=== PATIENT | female | born 1950 | race Caucasian/White ===

== ENCOUNTER 2022-11-07 17:25 | Emergency (ER) | payer MEDICARE, OTHER, SELFPAY ==
[2022-11-07 17:26] VITALS: BP 196/115; PULSE 89; RESP 16; TEMP 36.7; O2SAT 100; BMI 26.5
--- NOTE | 2022-11-07 18:03 | EX.ED.VIS.EY ---
HPI History of Present Illness Chief Complaint: Eye Problem Informant: patient Narrative Narrative: Patient presents with some watering and now mild burning in the right eye. She states she was just driving and started having a lot of tearing and watering. It seems irritated. She got home. She states her eye was just kind of burning. She took out her contact. It helped a little bit but it still bothering her. She states the vision is blurry after her contact is out. However, her contacts are a -5-1/2 on the right and she states normally she cannot see at all without her contact. So her blurriness is actually chronic. This is not worse than normal. She has no known trauma but says she may have gotten some dust in it while driving. No history of glaucoma. She states she had an allergic reaction to something once that caused a problem like this but cannot think of what would have triggered this event. PFSH PFSH Allergy/AdvReac Type Severity Reaction Status Date / Time Sulfa (Sulfonamide Allergy Intermediate NEEDS Verified 11/07/22 17:26 Antibiotics) FOLLOW-UP Social History Smoking Status: Never smoker ROS ROS ED Constitutional Constitutional ED: Denies chills, fever(s) or subjective Eyes Eyes: Reports other Details: See history of present illness ENT ENT ED: Denies rhinorrhea Cardiovascular Cardiovascular: Denies chest pain Respiratory/Chest Respiratory/Chest: Denies cough Gastrointestinal Gastrointestinal: Denies nausea or vomiting Integumentary Denies Abrasions or rash Neurologic Neurologic: Denies headache(s), paresthesias or weakness Hematologic/Lymphatic Hematologic/Lymphatic: Denies easy bleeding, easy bruising or lymphadenopathy EXAM Physical Exam Narrative Exam Narrative: General: Patient awake alert sitting in a brightly lit room in no acute distress carries on normal conversation. HEENT: No sign of trauma. No rashes. Negative Bennett sign. She does have just a hint of swelling of her lower lid. There is obvious tearing. There is some mild injection. There appears to be a chronic small stye on the lower lid medially but patient states this is chronic and unchanged from normal. It does not look acutely infected to me. Slit-lamp exam will be reported separately. Neck is supple no lymphadenopathy Lungs are clear. Heart is regular. Abdomen is nontender. Neurologically she is awake alert appropriate. No facial weakness. She has normal gait balance and coordination. Const Vital Signs: 11/07/22 17:26 Temperature 98.0 F Temperature Source Temporal Pulse Rate 89 Respiratory Rate 16 Blood Pressure 196/115 H Blood Pressure Mean 142 Pulse Ox 100 Oxygen Delivery Method Room Air MDM MDM MDM Narrative Medical decision making narrative: We will do visual acuity. However, since the patient has -5-1/2 and -6-1/2 contact lenses I expect her visual acuity to be exceedingly poor without these in. Slit-lamp exam shows: Lamp exam was initially done without any dye. She has tearing. Minimal injection. Pupillary is normal and responsive. There is no photophobia. I see no foreign body. We then placed fluorescein in the eye. There is some mild uptake in a few spots around the cornea. It looks like a mild version of a superficial punctate keratitis. But its not clustered in one area. It certainly is not a corneal ulcer at all. I do not see any linear abrasion. I think this may have been irritation from her contact. It may have gotten dry or it may have gotten dust under there. With the break in the epithelium, the burning and tearing we will give a short course of antibiotics. If she has visual loss pain vomiting fevers or any other symptoms she needs to return. Discharge Plan Triage Chief Complaint: Eye Problem ED Provider: Sam Cespedes Dx/Rx/DC Orders Clinical Impression: Corneal irritation of right eye Instructions: ED Corneal Injury, Contact Lens Primary Care Provider: Edwin Craft,Out of Referrals: Dominick Neal MD [Med Staff - Active Staff] - 1-2 Days if not improving Edwin Craft,Out of [Primary Care Provider] - Disposition Disposition: Home, Self Care
[2022-11-07] MEDS: Fluorescein 1 MG STRIP 1 STRIP OPHTHALMIC (18:25)
[2022-11-07] MEDS: Tetracaine 0.5% Ophthalmic Bottle 1 DRP OPHTHALMIC (18:25)
[2022-11-07] MEDS: Erythromycin Base 1 OPTH.TUBE 1 APPLIC RIGHT EYE (19:03)
== END 2022-11-07 19:05 | disposition home or self-care (01) ==
PROVIDERS: Emergency Provider Emergency Medicine; Visit Provider Emergency Medicine
DX: H18.891 Other specified disorders of cornea, right eye (principal)
CPT/HCPCS: 99283

== ENCOUNTER 2024-07-05 05:40 | Day surgery (SDC) | payer MEDICARE, OTHER, SELFPAY ==
[2024-07-05] VITALS (8 sets, daily range): BP systolic 110–149; BP diastolic 63–77; PULSE 54–72; RESP 16–18; TEMP 36.1–36.3; O2SAT 98–100; BMI 27.6
[2024-07-05] MEDS: Lactated Ringers 1,000 ML 15 ML IV (06:38)
--- NOTE | 2024-07-05 06:48 | PCM.PRE.AN2 ---
ASA Classification* ASA Classification ASA Classification: 2 (HTN , cholestrol) Assessment & Plan Anesthesia* Anesthesia Assessment Anesthesia Assessment: Discussed sedation and/or anesthesia options, risks, benefits, and alternatives with patient/parents/legal guardian/POA. Questions invited. The patient/parents/legal guardian/POA seems to understand and agrees to proceed with anesthesia plan. Reviewed the physical assessment, medical history, allergy history and patient home medications list prior to surgery/procedure/anesthetic and documented any changes. Performed airway and anesthesia risk assessments. 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 When Was Last Pacemaker Check QUESTION #4 FULL TEXT: You/Your Family Experience fever (hyperthermia) with Anesthesia Last Oral Intake Last Oral intake: Last Oral Intake NPO since 03:00 07/05/24 06:28 Meds taken in AM with sips of water? Meds patient instructed to take am of surgery PONV PONV - systems software engineer: PONV - systems software engineer Female Yes 07/03/24 10:45 HX of Motion Sickness No 07/03/24 10:45 HX of N/V After Surgery No 07/03/24 10:45 Non-Smoker Yes 07/03/24 10:45 Duration of Surgery greater No 07/03/24 10:45 than 60 minutes Number of Risk Factors 2 07/03/24 10:45 PONV Score Moderate Risk 07/03/24 10:45 Height & Weight Height & Weight: Anesthesia: Height & Weight Height 5 ft 2 in 07/05/24 06:28 Weight: 68.492 kg 07/05/24 06:28 Body Mass Index (BMI) 27.6 07/05/24 06:28 Respiratory Assessment Respiratory Assessment - systems software engineer: Respiratory Tract Infection Hx - systems software engineer Hx Respiratory Tract Infection No 07/03/24 10:45 STOP Sleep Apnea STOP Sleep Apnea - systems software engineer: STOP Sleep Apnea - systems software engineer Hx Hypertension No 07/03/24 10:45 Hx Sleep Apnea No 07/03/24 10:45 CPAP BIPAP Do you snore loudly (louder No 07/03/24 10:45 than talking or can be heard Do you often feel tired/ No 07/03/24 10:45 fatigued/ sleepy during daytime? Has anyone observed you stop No 07/03/24 10:45 breathing during sleep? STOP Results Negative 07/03/24 10:45 QUESTION #5 FULL TEXT : Do you snore loudly (louder than talking or can be heard through closed doors)? 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 Specify any problems Hx of Preganancy in last 3 No 07/03/24 10:45 Months Nurse Filling Out Transfusion VCHRISTIN 07/03/24 10:45 & Questions: Date: 07/03/24 07/03/24 10:45 Time: 10:46 07/03/24 10:45 Patient unable to answer at this time (ie. confused, unrespo /Reproduction History /Reproductive History - systems software engineer: /Reproductive Hx- systems software engineer Hx Now Gestational Age (in weeks): EDC: Hx Hx Para Hx Section SAB Active Medications Active Medications: Current Medications Generic Name Dose Route Start Last Admin Trade Name Freq PRN Reason Stop Dose Admin Lactated Ringer's 1,000 mls @ 15 mls/hr 07/05/24 06:15 07/05/24 06:38 IV 15 mls/hr .Q48H BE Administration PFSH Medical History (Updated 07/03/24 @ 10:45 by Haylee Bradford) Wears contact lenses Wears glasses Post-menopausal Non-smoker Leg cramps History of echocardiogram Hypertension Home Medications ?Medication ?Instructions ?Recorded ?Last Taken ?Type atorvastatin 20 mg tablet 20 mg PO DAILY 07/03/24 07/04/24 History cholecalciferol (vitamin D3) 50 50 mcg PO DAILY 07/03/24 07/04/24 History mcg (2,000 unit) tablet (Vitamin D3) lisinopril 40 mg tablet 40 mg PO DAILY 07/03/24 07/04/24 History metoprolol succinate 50 mg 50 mg PO DAILY 07/03/24 07/05/24 03:00 History tablet,extended release 24 hr Allergy/AdvReac Type Severity Reaction Status Date / Time Sulfa (Sulfonamide Allergy Intermediate NEEDS Verified 07/05/24 06:25 Antibiotics) FOLLOW-UP Surgical History (Updated 07/03/24 @ 10:45 by Haylee Bradford) Hx of colonoscopy Hx of hysterectomy History of 2 sections Social History Smoking Status: Never smoker Review of Systems (Anesthesia) ROS Narrative System reviewed and no additional complaints, except as documented.
--- NOTE | 2024-07-05 07:15 | COLBX_PTH ---
PATIENT: MELINDA GONZALEZ LOC: EN U#:[id number] AGE/SX: 73/F ROOM: RE07/05/[address]: Dr. Neil Flores DO : 1950 BED: DIS: 07/05/2024 SPEC #: [id number] RECD: 07/05/24 09:29 STATUS: ANTONIO GAFFNEY #: [id number] ANISH: 07/05/24 07:[address]: Neil Flores DEPT: SURGICAL PATHOLOGY RECD BY: Cj Castanon Tissues: A - Cecum, NOS Procedures: Surgery Specimen Level IV HEADER OPERATION: Colonoscopy biopsy PRE-OP DIAGNOSIS: Encounter for screening colonoscopy TISSUE SUBMITTED: A- Cecum polyp biopsy MICROSCOPIC DIAGNOSIS A. Colon, cecum, polyp, biopsy: Tubular adenoma. MICROSCOPIC DESCRIPTION Slides are reviewed. GROSS DESCRIPTION A. Received in formalin in a container labeled with the patient's name, date of , and cecum polyp biopsy is a 0.5 x 0.4 x 0.2 cm fragment of sullivan-pink mucosal tissue. Submitted in toto in A1. [facility] 07-05-2024 CPT:12728
--- NOTE | 2024-07-05 07:34 | PCM.HP.STD ---
[facility] - General General Date of Admission: 07/05/24 Date of Service: 07/05/24 Chief Complaint: Surveillance colonoscopy HPI Narrative MELINDA GONZALEZ, is a 73 F who presents today for surveillance colonoscopy. She has a history of polyps. She has a strong family history of colon cancer in multiple first-degree family members. She is not having any issues at this time. [facility] Medical History Wears contact lenses Wears glasses Post-menopausal Non-smoker Leg cramps History of echocardiogram Hypertension Home Medications ?Medication ?Instructions ?Recorded ?Last Taken ?Type atorvastatin 20 mg tablet 20 mg PO DAILY 07/03/24 07/04/24 History cholecalciferol (vitamin D3) 50 50 mcg PO DAILY 07/03/24 07/04/24 History mcg (2,000 unit) tablet (Vitamin D3) lisinopril 40 mg tablet 40 mg PO DAILY 07/03/24 07/04/24 History metoprolol succinate 50 mg 50 mg PO DAILY 07/03/24 07/05/24 03:00 History tablet,extended release 24 hr Allergy/AdvReac Type Severity Reaction Status Date / Time Sulfa (Sulfonamide Allergy Intermediate NEEDS Verified 07/05/24 06:25 Antibiotics) FOLLOW-UP Surgical History Hx of colonoscopy Hx of hysterectomy History of 2 sections Social History Smoking Status: Never smoker ROS Constitutional Constitutional: Denies fatigue, fever(s), poor appetite, weight gain or weight loss Gastrointestinal Gastrointestinal: Denies belching, bloating, change in bowel habits, change in stool character, chewing difficulty, coffee ground emesis, constipation, cramping, diarrhea, dyspepsia, dysphagia, early satiety, excessive flatus, fecal incontinence, heartburn, hematemesis, hematochezia, hemorrhoids, loose stools, melena, nausea, odynophagia, rectal bleeding, tenesmus, vomiting or weight changes Vital Signs Vital Signs Vital Signs: 07/05/24 06:27 07/05/24 06:28 07/05/24 06:49 Temperature 97.3 F L 97.3 F L Temperature Source Temporal Pulse Rate 64 64 Respiratory Rate 18 18 Respiratory Pattern Normal Blood Pressure 149/63 H 149/63 H Blood Pressure Mean 91 Blood Pressure Source Monitor Blood Pressure Position Semi-Fowlers Blood Pressure Location Left Arm Pulse Ox 100 100 Oxygen Delivery Method Room Air Room Air Weight Weight: 151 lb Body Mass Index (BMI) 27.6 Physical Exam Const alert, oriented x3, no apparent distress and healthy appearing General Appearance: cooperative GI normal to inspection, nondistended, normoactive bowel sounds, soft to palpation, non-tender and non-distended Percussion: normal to percussion Rectal Exam: deferred Assessment & Plan Assessment/Plan (1) Encounter for screening colonoscopy: PLAN: She presents today for screening colonoscopy. She was explained alternatives, risk, benefits including not withstanding bleeding, infection, sepsis, perforation, need for emergent surgery and . She will have an ASA of 3.
--- NOTE | 2024-07-05 08:19 | OP.CCLET_ITS ---
07/05/2024 Unknown Referring Re : Colonoscopy procedure for Dolly Reyes Dear Dr. Flanagan This procedure was performed on June. My impressions and recommendations are as follows: Impressions : - Diverticulosis in the recto-sigmoid colon, in the sigmoid colon, in the descending colon and at the splenic flexure. - One 3 mm polyp in the cecum, removed with a jumbo cold forceps. Resected and retrieved. - The examination was otherwise normal on direct and retroflexion views. Recommendations : - Discharge patient to home. - Resume previous diet. - Continue present medications. - Await pathology results. - Repeat colonoscopy in 5 years for surveillance. My findings are described in the full procedure note, which is enclosed. If I can be of further assistance, please feel free to contact me at . Sincerely, Neil Flores, 07/05/2024 8:19:35 AM This report has been signed electronically.
--- NOTE | 2024-07-05 08:19 | OP.COLON_ITS ---
Patient Name: Dolly Reyes Procedure Date: 07/05/2024 7:42 AM Date of : 1950 Age: 73 Procedure: Colonoscopy Indications: Screening for colorectal malignant neoplasm, Screening in patient at increased risk: Family history of 1st-degree relative with colorectal cancer Providers: Neil Flores DO Referring MD: Unknown Referring Medicines: Monitored Anesthesia Care Patient Profile: This is a 73 year old female. Refer to note in patient chart for documentation of history and physical. Last Colonoscopy: several years ago. Complications: No immediate complications. Procedure: Pre-Anesthesia Assessment: - Prior to the procedure, a History and Physical was performed, and patient medications and allergies were reviewed. The patient is competent. The risks and benefits of the procedure and the sedation options and risks were discussed with the patient. All questions were answered and informed consent was obtained. Patient identification and proposed procedure were verified by the physician in the pre-procedure area. Mental Status Examination: alert and oriented. Airway Examination: normal oropharyngeal airway and neck mobility. Respiratory Examination: clear to auscultation. CV Examination: normal. Prophylactic Antibiotics: The patient does not require prophylactic antibiotics. Prior Anticoagulants: The patient has taken no anticoagulant or antiplatelet agents except for NSAID medication. ASA Grade Assessment: II - A patient with mild systemic disease. After reviewing the risks and benefits, the patient was deemed in satisfactory condition to undergo the procedure. The anesthesia plan was to use monitored anesthesia care (MAC). Immediately prior to administration of medications, the patient was re-assessed for adequacy to receive sedatives. The heart rate, respiratory rate, oxygen saturations, blood pressure, adequacy of pulmonary ventilation, and response to care were monitored throughout the procedure. The physical status of the patient was re-assessed after the procedure. After I obtained informed consent, the scope was passed under direct vision. Throughout the procedure, the patient's blood pressure, pulse, and oxygen saturations were monitored continuously. The Colonoscope was introduced through the anus and advanced to the cecum, identified by appendiceal orifice and ileocecal valve. The colonoscopy was performed without difficulty. The patient tolerated the procedure well. The quality of the bowel preparation was good. Scope In: 7:54:55 AM Scope Withdrawal Time 0 hours 6 minutes 21 seconds Scope Out: 8:10:52 AM Total Procedure Duration Time 0 hours 15 minutes 57 seconds Findings: The perianal and digital rectal examinations were normal. Many small and large-mouthed diverticula were found in the recto-sigmoid colon, sigmoid colon, descending colon and splenic flexure. A 3 mm polyp was found in the cecum. The polyp was sessile. The polyp was removed with a jumbo cold forceps. Resection and retrieval were complete. Verification of patient identification for the specimen was done. Estimated blood loss was minimal. The exam was otherwise without abnormality on direct and retroflexion views. Impression: - Diverticulosis in the recto-sigmoid colon, in the sigmoid colon, in the descending colon and at the splenic flexure. - One 3 mm polyp in the cecum, removed with a jumbo cold forceps. Resected and retrieved. - The examination was otherwise normal on direct and retroflexion views. Recommendation: - Discharge patient to home. - Resume previous diet. - Continue present medications. - Await pathology results. - Repeat colonoscopy in 5 years for surveillance. Procedure Code(s): --- Professional --- 98295, Colonoscopy, flexible; with biopsy, single or multiple CPT copyright 2021 [employer]. All rights reserved. The codes documented in this report are preliminary and upon supervisor irrigation review may be revised to meet current compliance requirements. Neil Flores DO 07/05/2024 8:19:35 AM This report has been signed electronically. Number of Addenda: 0 Note Initiated On: 07/05/2024 7:42 AM
--- NOTE | 2024-07-05 08:21 | PCM.POST.ANE ---
Anesthesia: Postop Eval I Current Vital Signs Temperature: 97 F Pulse Rate: 72 Blood Pressure: 110/69 Respiratory Rate: 16 Pulse Ox: 100 Oxygen Delivery Method: Room Air Assessment Airway patent: Yes Spontaneous unlabored respirations: Yes Mental status: Awake and Calm nausea: No Vomiting: No Anesthesia Complication: No Fluid Hydration Crystalloid volume administer (ml): 800 Total IV fluid infused: 800 Progress Note Anesthesia document: Postop Eval 1 completed: Yes
--- NOTE | 2024-07-05 11:10 | PCM.POSTANE2 ---
Anesthesia Postop Eval I Sum Postop Eval Completion status Anesthesia document: Postop Eval 1 completed: Yes Anesthesia Postop Eval I Summary Anesthesia Postop Eval I Summary: Anesthesia Postop Eval I: Assessment Summary Airway patent Yes 07/05/24 08:22 [email or web address] Spontaneous unlabored Yes 07/05/24 08:22 [email or web address] respirations Mental status Awake,Calm 07/05/24 08:22 [email or web address] nausea No 07/05/24 08:22 [email or web address] Vomiting No 07/05/24 08:22 [email or web address] Anesthesia Postop Eval I: Fluid Summary Crystalloid volume administer 800 07/05/24 08:22 [email or web address] (ml) Colloids volume administered ( ml) Blood Product volume administered (ml) Total IV fluid infused 800 07/05/24 08:22 [email or web address] Anesthesia Postop Eval I: Summary Notes Anesthesia Complication No 07/05/24 08:22 [email or web address] Anesthesia Complication Comment: Post-operative progress note Anesthesia: Postop Eval II Evaluation Mental status: Awake Pain Level: 0 nausea: No Vomiting: No Complications Anesthesia Complication: No
== END 2024-07-05 09:00 | disposition home or self-care (01) ==
LOC: EN 05:41 → AC 05:41
PROVIDERS: Visit Provider Internal Medicine Gastroenterology
PROC: 0DJD8ZZ Inspection of Lower Intestinal Tract, Via Natural or Artificial Opening Endoscopic (ICD-10-PCS; CPT 45378; principal; 2024-07-05 07:10)
DX: Z12.11 Encounter for screening for malignant neoplasm of colon (principal); D12.0 Benign neoplasm of cecum; K57.30 Diverticulosis of large intestine without perforation or abscess without bleeding; I10 Essential (primary) hypertension; Z86.0100 Personal history of colon polyps, unspecified; Z80.0 Family history of malignant neoplasm of digestive organs; Z79.899 Other long term (current) drug therapy
CPT/HCPCS: 45380; 88305; J2405

== ENCOUNTER → 2024-08-13 | Outpatient (CLI) | payer MEDICARE, OTHER, SELFPAY | END | disposition home or self-care (01) | LOC: OPBI 13:00 | DX: Z12.31 Encounter for screening mammogram for malignant neoplasm of breast (principal) | CPT/HCPCS: 77063; 77067 ==